=== PATIENT | female | born 1940 | race Two or more races ===

== ENCOUNTER 2022-11-05 15:30 | Inpatient (IN) | payer MEDICARE, OTHER ==
[~2022-11-05] VITALS: Ht 157.5 cm; Wt 49.9 kg
--- NOTE | 2022-11-05 15:55 | NUR ---
Patient AOx4, able to express her concerns. States she d/c from another hospital yesteday and today she woke up feeling weak. Patient able to follow commands, states she feels weak and at times short of breath. Discussed plan of care, patient verbalized agreement, all safety precautions taken.
[2022-11-05] MEDS ORDERED: VANCOMYCIN 1 GM in IV D5W 250 ML IV ONE (16:00)
[2022-11-05] MEDS ORDERED: PIPERACILLIN /TAZOBACTAM 2.25 G in IV D5W 50 ML IV ONE (16:00)
[2022-11-05] MEDS ORDERED: IV NS 0.9% 1,000 ML IV ONE (16:00)
--- NOTE | 2022-11-05 16:15 | NUR ---
COVID Swab collected, sent to lab
[2022-11-05 16:26] LABS: BASOPHILS % (AUTO) 0.3 % (0.0-2.0); EOSINOPHILS % (AUTO) 0.8 % (0.0-6.0); HEMATOCRIT 33 % (33-45); HEMOGLOBIN 10.1 g/dL (11.5-14.8); LYMPHOCYTES # (AUTO) 1.7 K/uL (0.8-4.8); LYMPHOCYTES % (AUTO) 11.5 % (20.0-44.0); MEAN CORPUSCULAR HGB CONC 31 g/dl (31.0-36.0); MEAN CORPUSCULAR VOLUME 101 fL (82-100); MONOCYTES # (AUTO) 0.8 K/uL (0.1-1.30); MONOCYTES % (AUTO) 5.4 % (2.0-12.0); NEUTROPHILS # (AUTO) 12.4 K/uL (1.8-8.9); PLATELET COUNT (AUTO) 484 K/uL (150-450); RED BLOOD CELL COUNT(AUTO) 3.25 MIL/uL (4.0-5.2); WHITE BLOOD COUNT (AUTO) 15.1 K/uL (4.3-11.0)
[2022-11-05] MEDS ORDERED: LORA10TA7 PO (16:36)
[2022-11-05] MEDS ORDERED: NEBI10TA2 PO (16:36)
[2022-11-05] MEDS ORDERED: LIDO30AD10 TP (16:36)
[2022-11-05] MEDS ORDERED: LEVO250T59 PO (16:36)
[2022-11-05] MEDS ORDERED: ATOR10TA PO (16:36)
[2022-11-05] MEDS ORDERED: SITA1TAB6 PO (16:36)
[2022-11-05] MEDS ORDERED: LEVO25TA76 PO (16:36)
[2022-11-05] MEDS ORDERED: GABA300C PO (16:36)
[2022-11-05] MEDS ORDERED: CALC500T52 PO (16:36)
[2022-11-05] MEDS ORDERED: MECL-182 PO (16:36)
[2022-11-05] MEDS ORDERED: MELA3TAB41 PO (16:36)
[2022-11-05] MEDS ORDERED: LACT1CAP71 PO (16:36)
[2022-11-05] MEDS ORDERED: BIMA2.5D5 EACHEYE (16:36)
[2022-11-05] MEDS ORDERED: AZEL137S7 (16:36)
[2022-11-05] MEDS ORDERED: DORZ10DR11 EACHEYE (16:36)
[2022-11-05] MEDS ORDERED: CLOP75TA15 PO (16:36)
[2022-11-05] MEDS ORDERED: PANT20TA2 PO (16:36)
[2022-11-05] MEDS ORDERED: PSYL3.4P6 PO (16:36)
[2022-11-05] MEDS ORDERED: HYDR-4077 PO (16:36)
[2022-11-05] MEDS ORDERED: ASPI-1420 PO (16:36)
[2022-11-05] MEDS ORDERED: COLE625T9 PO (16:37)
[2022-11-05] MEDS ORDERED: LOPE2CAP PO (16:37)
[2022-11-05] MEDS ORDERED: INDO50CA91 PO (16:37)
[2022-11-05] MEDS ORDERED: VERA240C2 PO (16:37)
[2022-11-05] MEDS ORDERED: DICL100G34 TP (16:37)
[2022-11-05] MEDS ORDERED: ACET-868 PO (16:37)
[2022-11-05 16:46] LABS: CALCIUM, SERUM 8.9 mg/dL (8.5-10.1); CARBON DIOXIDE 19 mmol/L (21-32); CHLORIDE 105 mmol/L (98-107); GLUCOSE 234 mg/dL (74-106); POTASSIUM 4.8 mmol/L (3.5-5.1); SODIUM SERUM 139 mmol/L (136-145); UREA NITROGEN, BLOOD 43 mg/dL (7-18)
--- NOTE | 2022-11-05 16:53 | NUR ---
Urine collected, sent to lab
[2022-11-05 16:58] LABS: ABG BASE EXCESS -9.4 mmol/L; ABG PCO2 41.2 mmHg (35.0-45.0); ABG PH 7.242 (7.350-7.450); ABG PO2 67.7 mmHg (75.0-100.0); MetHb 0.2 % (0.0-1.5); O2Hb 88.5 % (94.0-97.0); SITE, ABG Right Brachial; VENT MODE, BG SIMPLE MASK
--- NOTE | 2022-11-05 17:00 | NUR ---
PT. IS AWAKE AND FOLLOW COMMANDS, PLACED INTO BIPAP DUE TO INCREASED WORK OF BREATHING. BIPAP PARAMETERS BELOW ORDERED: IPAP 15 EPAP 5 RR 18 FIO2 60% BREATH SOUNDS FINE CRACKLES BILATERAL. BIPAP PLUGGED IN RED OUTLET WITH ALARMS ON AND FUNCTIONING AMBU BAG @ BEDSIDE Addendum: 11/05/22 at 1711 by AZAEL ROSE RT Amended: Links added.
[2022-11-05 17:01] LABS: ALANINE AMINOTRANSFERASE 49 U/L (12-78); ALKALINE PHOSPHATASE 210 U/L (46-116); ASPARTATE AMINOTRANSFERASE 58 U/L (15-37); BILIRUBIN,DIRECT 0.1 mg/dL (0.0-0.2); BILIRUBIN,TOTAL 0.4 mg/dL (0.2-1.0); MAGNESIUM 2.2 mg/dL (1.8-2.4); TOTAL PROTEIN, SERUM 7.4 g/dL (6.4-8.2)
[2022-11-05 17:26] LABS: BILIRUBIN,URINE 1+ (NEGATIVE); LEUKOCYTE ESTERASE ,URINE NEGATIVE (NEGATIVE); NITRITE, URINE NEGATIVE (NEGATIVE); PH,URINE 5.5 (5.0-8.0); PROTEIN,URINE 2+ mg/dl (NEGATIVE); UGLUCOSE NEGATIVE (NEGATIVE); UROBILINOGEN,URINE 0.2 EU/dL (0.2)
[2022-11-05 17:29] LABS: COLOR,URINE YELLOW (YELLOW)
[2022-11-05] MEDS ORDERED: FUROSEMIDE 40 MG/4 ML VIAL IV ONE ×2 (17:30)
[2022-11-05] MEDS ORDERED: FUROSEMIDE 40 MG/4 ML VIAL ONE (17:49)
[2022-11-05 17:53] LABS: BACTERIA,URINE Rare /HPF (None Seen); RBC,URINE 0-2 /HPF (0-2); SQUAMOUS EPITHELIAL CELL,UR Rare /HPF (None Seen); WBC,URINE 0-2 /HPF (0-3)
--- NOTE | 2022-11-05 17:55 | NUR ---
MOVE SHEET SUBMITTED.
--- NOTE | 2022-11-05 18:01 | NUR ---
Roberta AOx4, with daughter at bedside, per pts request. BIPAP IPAP [id number] EPAP 5, RR 18, O2 60%VT 1062 ml, Min Vent 21l/min, PIP 14
--- NOTE | 2022-11-05 19:36 | NUR ---
GOT BED 258 ADMITTING INFORMED.
[2022-11-05] MEDS ORDERED: HEPARIN INFUSION/D5W 500 ML IV PRN (20:00)
[2022-11-05] MEDS ORDERED: HEPARIN INFUSION/D5W 500 ML IV ONE (20:18)
--- NOTE | 2022-11-05 20:50 | NUR ---
GAVE REPORT TO SANTANA GOMEZ BY SANTANA FOOTE. #2 IV CANNULA INSERTED ON LEFT AC G18.
[2022-11-05] MEDS ORDERED: MORPHINE SULFATE INJ 2 MG/ML DISP.SYRIN IV PRN (21:00)
[2022-11-05] MEDS ORDERED: ACETAMINOPHEN 325 MG TABLET PO PRN (21:00)
[2022-11-05] MEDS ORDERED: DEXTROSE 50%-WATER 50 ML DISP.SYRIN IV PRN (21:00)
[2022-11-05] MEDS ORDERED: LIDOCAINE 5% (PATCH) 1 EA PATCH TP PRN (21:00)
[2022-11-05] MEDS ORDERED: DICLOFENAC TOPICAL 100 GM TUBE TP PRN (21:00)
[2022-11-05] MEDS ORDERED: ONDANSETRON HCL/PF 4 MG/2 ML VIAL IVP PRN (21:00)
[2022-11-05] MEDS ORDERED: LOPERAMIDE HCL (2 MG CAP) 2 MG CAPSULE PO PRN (21:00)
--- NOTE | 2022-11-05 21:15 | NUR ---
Heparin gtt handover to Nuha DILLON in ICU.
--- NOTE | 2022-11-05 21:15 | NUR ---
TRANSFERRED TO ROOM VIA ACLS PROTOCOL. ACCOMPANIED BY RT FOR BIPAP
--- NOTE | 2022-11-05 21:25 | NUR ---
Clarified heparin order with Dr. Alexandre. does not want a loading dose but to start at 650unit/hr and ICU to titrate as per the admiting doc.
[2022-11-05 21:30] VITALS: BP 130/63
[2022-11-05] MEDS: HEPARIN INFUSION/D5W 500 ML IV PRN ×2 (21:30→23:03)
--- NOTE | 2022-11-05 21:30 | NUR ---
RECEIVED PT FROM ER. PT TRANSFERRED TO ICU FROM ER VIA ACLS PROTOCOL. PLACED IN ROOM 258. PT WAKE, ALERT/ORIENTED X4 AND CAMEROONIAN SPEAKING. ON BIPAP, SETTINGS PRESCRIBED. O2 SAT 96%. IV ACCESS ON LT FA #18 AND #20G INFUSING HEPARIN AT 650 UNITS, WILL ADJUST TO 825 UNITS ORDER ORIENTED TO ROOM, UPON PT'S ARRIVAL, V/S T 97.2, HR 64, RR 22, O2SAT 97%, BP 130/63. BODY ASSESSMENT DONE. NO SKIN DISCOLORATION OR OPEN SKIN NOTED. FIRE ENGINE PUMP OPERATOR SHOWS SINUS JIM TO SINUS RHYTHM, HR 56-64. ALL SAFETY MEASURES IN PLACE. BED IN LOWEST POSITION AND LOCKED. SIDE RAILS X3, PLACED CALL LIGHT WITH IN REACH. WILL CONTINUE TO MONITOR AND WILL CONTINUE PLAN OF CARE.
[2022-11-05 22:00] VITALS: BP 125/67
[2022-11-05] MEDS ORDERED: CEFEPIME 1 GM in IV D5W 50 ML IV ONE (22:00)
[2022-11-05] MEDS: BLOOD SUGAR DIAGNOSTIC 1 EACH STRIP IN SCH (22:10)
[2022-11-05] MEDS: INSULIN REGULAR, HUMAN 100 UNIT/ML 3 ML VIAL SQ PRN (22:15)
[2022-11-05 23:00] VITALS: BP 114/66
[2022-11-05] MEDS ORDERED: CEFEPIME 1 GM VIAL ONE (23:00)
[2022-11-05 23:30] LABS: ABG BASE EXCESS -8.3 mmol/L; ABG OXYGEN SATURATION 90.5 % (92.0-98.5); ABG PCO2 29.3 mmHg (35.0-45.0); ABG PH 7.358 (7.350-7.450); ABG PO2 65.2 mmHg (75.0-100.0); AaDO2 330.4 mmHg; MetHb 0.3 % (0.0-1.5); O2Hb 90.2 % (94.0-97.0); SITE, ABG Right Radial; VENT MODE, BG ST 15/5 18 60%
[2022-11-06] VITALS (24 sets, daily range): BP systolic 106–186; BP diastolic 56–94
[2022-11-06 04:25] LABS: BASOPHILS % (AUTO) 0.1 % (0.0-2.0); HEMATOCRIT 26 % (33-45); LYMPHOCYTES # (AUTO) 1.1 K/uL (0.8-4.8); LYMPHOCYTES % (AUTO) 9.1 % (20.0-44.0); MEAN CORPUSCULAR HGB CONC 31 g/dl (31.0-36.0); MEAN CORPUSCULAR VOLUME 99 fL (82-100); MONOCYTES # (AUTO) 0.7 K/uL (0.1-1.30); MONOCYTES % (AUTO) 5.7 % (2.0-12.0); NEUTROPHILS # (AUTO) 9.9 K/uL (1.8-8.9); NEUTROPHILS % (AUTO) 85.1 % (43.0-81.0); PLATELET COUNT (AUTO) 352 K/uL (150-450); RED BLOOD CELL COUNT(AUTO) 2.59 MIL/uL (4.0-5.2); WHITE BLOOD COUNT (AUTO) 11.6 K/uL (4.3-11.0)
[2022-11-06 04:38] LABS: ALANINE AMINOTRANSFERASE 39 U/L (12-78); ALBUMIN 2.3 g/dL (3.4-5.0); ALKALINE PHOSPHATASE 162 U/L (46-116); ASPARTATE AMINOTRANSFERASE 25 U/L (15-37); BILIRUBIN,TOTAL 0.3 mg/dL (0.2-1.0); CALCIUM, SERUM 8.6 mg/dL (8.5-10.1); CARBON DIOXIDE 21 mmol/L (21-32); CHLORIDE 106 mmol/L (98-107); GLUCOSE 180 mg/dL (74-106); PHOSPHORUS 4.2 mg/dL (2.5-4.9); POTASSIUM 4.6 mmol/L (3.5-5.1); SODIUM SERUM 138 mmol/L (136-145); TOTAL PROTEIN, SERUM 5.9 g/dL (6.4-8.2); UREA NITROGEN, BLOOD 47 mg/dL (7-18)
--- NOTE | 2022-11-06 05:58 | NUR ---
RT NOTE PT PLACED ON 6LPM NASAL CANNULA WITH HUMIDIFIER. SPO2 @ 94%, HR 64, RR 18. NO RESPIRATORY DISTRESS NOTED.
--- NOTE | 2022-11-06 06:59 | NUR ---
PT ASLEEP, EASILY AROUSABLE/RESPONSIVE, ALERT/ORIENTED X4 AND TURKMEN SPEAKING. ON O2 AT 6LPM VIA NC, O2 SAT AT 96%. SQUEEGEER AND FORMER SHOWS SINUS JIM TO SINUS RHYTHM, HR 56-64. IV ACCESS ON LT FA #18 AND #20G INFUSING HEPARIN AT 825 UNITS ORDERED. ALL SAFETY MEASURES MAINTAINED. BED IN LOWEST POSITION AND LOCKED. SIDE RAILS X3, PLACED CALL LIGHT WITH IN REACH. WILL ENDORSE TO NEXT NURSE ON DUTY FOR CONTINUITY OF CARE.
--- NOTE | 2022-11-06 07:25 | NUR ---
CLINICAL NUTRITIONIST OPENING NOTE RECEIVED PT ASLEEP, EASILY AROUSABLE/RESPONSIVE, ALERT/ORIENTED X4, MAURITIAN SPEAKING. ON O2 AT 6LPM VIA NC, O2 SAT AT 95%. SODA DIALYZER SHOWS SINUS RHYTHM, HR 65. IV ACCESS ON LT FA #18 AND #20G INFUSING HEPARIN AT 825 UNITS ORDERED. ALL SAFETY MEASURES MAINTAINED. BED IN LOWEST POSITION AND LOCKED. SIDE RAILS X3, PLACED CALL LIGHT WITH IN REACH. BED ALARM ON
[2022-11-06] MEDS: BLOOD SUGAR DIAGNOSTIC 1 EACH STRIP IN SCH ×4 (07:40→21:21)
[2022-11-06] MEDS ORDERED: COLESEVELAM HCL 1875 MG PO SCH (09:00)
[2022-11-06] MEDS: MECLIZINE HCL 12.5 MG TABLET PO SCH (09:00)
[2022-11-06] MEDS: CLOPIDOGREL BISULFATE 75 MG TABLET PO SCH (09:12)
[2022-11-06] MEDS: LEVOTHYROXINE SODIUM 50 MCG TABLET PO SCH (09:12)
[2022-11-06] MEDS: ASPIRIN EC 81 MG TABLET.DR PO SCH (09:13)
[2022-11-06] MEDS: CALCIUM CARBONATE (1250) 500 MG TABLET PO SCH (09:13)
[2022-11-06] MEDS: hydrALAZINE HCL 50 MG TABLET PO SCH ×3 (09:15→17:00)
[2022-11-06] MEDS: METOPROLOL TARTRATE 50 MG TABLET PO SCH ×2 (09:55→21:12)
[2022-11-06 10:12] LABS: THYROID STIMULATING HORMONE 1.921 uIU/mL (0.358-3.74)
[2022-11-06] MEDS: TIMOLOL MAL/DORZOLAM HCL OPHTH 10 ML BOTTLE EACHEYE SCH ×2 (10:18→21:13)
[2022-11-06] MEDS: INSULIN REGULAR, HUMAN 100 UNIT/ML 3 ML VIAL SQ PRN ×2 (10:22→22:49)
[2022-11-06] MEDS: CEFEPIME 2 GM in IV D5W 100 ML IV SCH (10:53)
[2022-11-06] MEDS: IV NS 0.9% 250 ML IV PRN (10:57)
[2022-11-06] MEDS: hydrALAZINE HCL IV 20 MG VIAL IV PRN ×2 (11:05→17:20)
--- NOTE | 2022-11-06 11:40 | NUR ---
RT PATIENT SHOWING SIGNS OF DISTRESS AND SOB. PLACED PATIENT BACK ON BIPAP. Addendum: 11/06/22 at 1141 by GREGOR RODRIGUEZ RT Amended: Links added.
--- NOTE | 2022-11-06 12:30 | NUR ---
RN NOTE BS 232 NOT COVERED AT THIS TIME. DUE TO PT BEING ON BIPAP AND POOR APPETITE
--- NOTE | 2022-11-06 12:56 | NUR ---
RN NOTE PT ON BIPAP AT THIS TIME. ROUNDS MADE WITH DR. WEEKS. KEEP NPO AT THIS TIME
--- NOTE | 2022-11-06 12:57 | NUR ---
RN NOTE NOTIFIED DR. WEEKS OF TROPONIN LEVEL 2058. AWARE
--- NOTE | 2022-11-06 12:58 | NUR ---
rn note notified of troponin 2058. said to continue heparin drip.orders noted and carried out
--- NOTE | 2022-11-06 16:49 | NUR ---
RT PATIENT PLACED BACK ON BIPAP FOR SOB Addendum: 11/06/22 at 1649 by GREGOR RODRIGUEZ RT Amended: Links added.
[2022-11-06] MEDS: VANCOMYCIN 0.75 GM in IV D5W 250 ML IV SCH (17:20)
[2022-11-06] MEDS: LORATADINE 10 MG TABLET PO SCH (18:00)
[2022-11-06] MEDS: ATORVASTATIN 10 MG TABLET PO SCH (18:00)
[2022-11-06] MEDS: GABAPENTIN 300 MG CAPSULE PO SCH (18:00)
[2022-11-06] MEDS: VERAPAMIL SR 120 MG TABLET.SA PO SCH (18:00)
--- NOTE | 2022-11-06 18:16 | NUR ---
rn note notified dr. abdul that bs 231 and if okay to hold insulibn coverage and po medications at this due to bipap Addendum: 11/06/22 at 1820 by SHIRIN GANDARA RN per dr. abdul said okay to hold
--- NOTE | 2022-11-06 19:40 | NUR ---
CERTIFIED PHYSICAL THERAPIST ASSISTANT CLOSING NOTE PT AWAKE, EASILY AROUSABLE/RESPONSIVE, ALERT/ORIENTED X4, SUDANESE SPEAKING. CURRENTLY ON BIPAP, O2 SAT AT 97%. BOILER HOUSE SUPERVISOR SHOWS SINUS RHYTHM, HR 79 AT THIS TIME. IV ACCESS ON LT FA #18 AND #20G INFUSING HEPARIN AT 825 UNITS ORDERED. HEAD OF BED ELEVATED AT ALL TIMES. ALL SAFETY MEASURES MAINTAINED. BED IN LOWEST POSITION AND LOCKED. SIDE RAILS X4, CALL LIGHT WITH IN REACH. BED ALARM ON.ENDORSED TO AQUACULTURIST RN FOR CONTUITY OF CARE
[2022-11-06] MEDS: HEPARIN INFUSION/D5W 500 ML IV PRN (22:56)
[2022-11-07] VITALS (44 sets, daily range): BP systolic 96–187; BP diastolic 58–125
[2022-11-07] MEDS: hydrALAZINE HCL IV 20 MG VIAL IV PRN ×2 (00:04→16:02)
--- NOTE | 2022-11-07 01:46 | NUR ---
LEATHER COVERER OPENING NOTE PT RECEIVED IN BED, AWAKE, A/O X4, MALAY-SPEAKING. PT ON BIPAP WITH SETTING OF 15/5, RATE 18, FIO2 TITRATED DOWN INITIALLY FROM 60% TO 50% AND NOW TO 40% WITH O2SAT 100%; NO S/S OF RESP DISTRESS, NO SOB, NON-LABORED AND EQUAL BREATHING; APPEARS COMFORTABLE OVERALL. PT ATTACHED TO BEDSIDE MONITOR, SR WITH HR OF 74. IV ACCESS ON LFA 20G AND LFA 18G, INTACT AND PATENT, FLUSHES EASILY WITH NO RESISTANCE; HEPARIN INFUSING AT 825 UNITS/HR WITH NO SIGNS OF ACTIVE BLEEDING. BED IN LOWEST POSITION, CALL LIGHT WITHIN REACH, SIDE RAILS UP X2. WILL CONTINUE TO MONITOR THROUGHOUT THE NIGHT.
[2022-11-07 05:35] LABS: BASOPHILS % (AUTO) 0.3 % (0.0-2.0); EOSINOPHILS % (AUTO) 0.2 % (0.0-6.0); HEMATOCRIT 27 % (33-45); HEMOGLOBIN 8.3 g/dL (11.5-14.8); LYMPHOCYTES # (AUTO) 1.5 K/uL (0.8-4.8); LYMPHOCYTES % (AUTO) 13.3 % (20.0-44.0); MEAN CORPUSCULAR HGB CONC 31 g/dl (31.0-36.0); MEAN CORPUSCULAR VOLUME 100 fL (82-100); MONOCYTES # (AUTO) 0.8 K/uL (0.1-1.30); MONOCYTES % (AUTO) 7.1 % (2.0-12.0); NEUTROPHILS # (AUTO) 8.8 K/uL (1.8-8.9); NEUTROPHILS % (AUTO) 79.1 % (43.0-81.0); PLATELET COUNT (AUTO) 391 K/uL (150-450); RED BLOOD CELL COUNT(AUTO) 2.65 MIL/uL (4.0-5.2); WHITE BLOOD COUNT (AUTO) 11.1 K/uL (4.3-11.0)
[2022-11-07 05:51] LABS: ALANINE AMINOTRANSFERASE 30 U/L (12-78); ALBUMIN 2.3 g/dL (3.4-5.0); ALKALINE PHOSPHATASE 154 U/L (46-116); ASPARTATE AMINOTRANSFERASE 13 U/L (15-37); BILIRUBIN,TOTAL 0.4 mg/dL (0.2-1.0); CARBON DIOXIDE 23 mmol/L (21-32); CHLORIDE 105 mmol/L (98-107); CREATININE 1.7 mg/dL (0.6-1.3); GLUCOSE 164 mg/dL (74-106); MAGNESIUM 2.2 mg/dL (1.8-2.4); PHOSPHORUS 4.5 mg/dL (2.5-4.9); POTASSIUM 4.5 mmol/L (3.5-5.1); SODIUM SERUM 138 mmol/L (136-145); TOTAL PROTEIN, SERUM 6.3 g/dL (6.4-8.2); UREA NITROGEN, BLOOD 44 mg/dL (7-18)
--- NOTE | 2022-11-07 06:02 | NUR ---
RN NOTE RECEIVED CRITICAL FROM LAB 1098, NOTED TO BE TRENDING DOWN FROM 2058
--- NOTE | 2022-11-07 07:27 | NUR ---
ICU/RN PT RECEIVED IN BED, AWAKE, A&OX4. PT TRANSITIONED FROM BIPAP TO HFNC 40L 60% FIO2 BY RT AT 0700, O2 SAT 98% AT THIS TIME. BP ELEVATED AT THIS TIME, SCHEDULED MEDICATION TO BE GIVEN AT 0900. LEFT FA 18G AND LEFT FA 20G IN PLACE RUNNING HEPARIN AT 925 UNITS/HR PER PROTOCOL, NEXT APTT SCHEDULED AT 1120. BED LOCKED AND IN LOWEST POSITION, CALL LIGHT WITHIN REACH, 3 SIDE RAILS UP.
[2022-11-07] MEDS: BLOOD SUGAR DIAGNOSTIC 1 EACH STRIP IN SCH ×4 (07:30→21:26)
[2022-11-07 07:37] LABS: CREATININE, URINE 59.4 MG/DL (30.0-125.0)
[2022-11-07] MEDS: ASPIRIN EC 81 MG TABLET.DR PO SCH (08:06)
[2022-11-07] MEDS: CLOPIDOGREL BISULFATE 75 MG TABLET PO SCH (08:06)
[2022-11-07] MEDS: METOPROLOL TARTRATE 50 MG TABLET PO SCH ×2 (08:06→21:25)
[2022-11-07] MEDS: LEVOTHYROXINE SODIUM 50 MCG TABLET PO SCH (08:06)
[2022-11-07] MEDS: MECLIZINE HCL 12.5 MG TABLET PO SCH (08:06)
[2022-11-07] MEDS: hydrALAZINE HCL 50 MG TABLET PO SCH ×3 (08:06→17:30)
[2022-11-07] MEDS: CALCIUM CARBONATE (1250) 500 MG TABLET PO SCH (08:07)
[2022-11-07] MEDS: TIMOLOL MAL/DORZOLAM HCL OPHTH 10 ML BOTTLE EACHEYE SCH ×2 (08:09→21:26)
[2022-11-07] MEDS: INSULIN REGULAR, HUMAN 100 UNIT/ML 3 ML VIAL SQ PRN ×4 (08:09→21:30)
[2022-11-07 09:34] LABS: BILIRUBIN,URINE NEGATIVE (NEGATIVE); COLOR,URINE YELLOW (YELLOW); LEUKOCYTE ESTERASE ,URINE NEGATIVE (NEGATIVE); NITRITE, URINE NEGATIVE (NEGATIVE); PH,URINE 5.5 (5.0-8.0); PROTEIN,URINE 1+ mg/dl (NEGATIVE); UGLUCOSE NEGATIVE (NEGATIVE); UROBILINOGEN,URINE 0.2 EU/dL (0.2)
[2022-11-07 09:36] LABS: EOSINOPHIL,URINE None Seen
[2022-11-07] MEDS ORDERED: NTG 50 MG/D5W250 ML BOTTL 250 ML IV PRN ×2 (10:00→12:00)
[2022-11-07] MEDS: CEFEPIME 2 GM in IV D5W 100 ML IV SCH (10:19)
[2022-11-07] MEDS: FUROSEMIDE 40 MG/4 ML VIAL IV SCH ×3 (10:19→17:29)
--- NOTE | 2022-11-07 11:47 | NUR ---
ICU/RN FRANCIS CATH INSERTED PER ORDER. PT TOLERATED WELL. FC IN PLACE, PATENT AND DRAINING CLEAR YELLOW URINE.
[2022-11-07 11:58] LABS: BACTERIA,URINE Rare /HPF (None Seen); RBC,URINE 0-2 /HPF (0-2); WBC,URINE 0-2 /HPF (0-3)
[2022-11-07 11:59] LABS: SQUAMOUS EPITHELIAL CELL,UR Few /HPF (None Seen); URIC ACID CRYSTALS,URINE Few /HPF (None Seen); YEAST,URINE Rare /HPF (None Seen)
--- NOTE | 2022-11-07 13:00 | NUR ---
ICU/RN PT PLACED BACK ON BIPAP BY RT DUE TO SHORTNESS OF BREATH, 15/5, RATE OF 12, 50% FIO2.
[2022-11-07 13:07] LABS: *SPE A/G RATIO 0.9 (0.7-1.7); *SPE ALPHA-1-GLOBULIN 0.4 g/dL (0.0-0.4); *SPE ALPHA-2-GLOBULIN 1.1 g/dL (0.4-1.0); *SPE BETA GLOBULIN 1.1 g/dL (0.7-1.3); *SPE M-SPIKE Not Observed g/dL (Not Observed)
[2022-11-07] MEDS ORDERED: FUROSEMIDE 40 MG/4 ML VIAL IV SCH (14:30)
[2022-11-07] MEDS: VANCOMYCIN 0.75 GM in IV D5W 250 ML IV SCH (15:53)
[2022-11-07] MEDS: IV NS 0.9% 250 ML IV PRN (15:57)
--- NOTE | 2022-11-07 16:06 | NUR ---
ICU/RN PT CONTINUE TO HAVE ELEVATED BP DESPITE PO MEDICATION AND INITATION OF NITRO DRIP. NITRO DRIP INCREASED PER PROTOCOL, HYDRALAZINE 10MG IVP PRN GIVEN.
[2022-11-07] MEDS: LORATADINE 10 MG TABLET PO SCH (17:29)
[2022-11-07] MEDS: ATORVASTATIN 10 MG TABLET PO SCH (17:29)
[2022-11-07] MEDS: GABAPENTIN 300 MG CAPSULE PO SCH (17:29)
[2022-11-07] MEDS: VERAPAMIL SR 120 MG TABLET.SA PO SCH (17:30)
--- NOTE | 2022-11-07 19:58 | NUR ---
RT NOTE PT RECEIVED ON BIPAP WITH CURRENT SETTINGS OF 15/5, 12, 50%. PT AWAKE/ALERT. MASK SECURED WITH MEPILEX IN PLACE. PT NOTED WITH HIGH HR. RN CHARO AWARE AND EKG ORDER PLACED AND PERFORMED. WILL CONTINUE TO MONITOR CLOSELY. SPO2 @ 100%.
--- NOTE | 2022-11-07 20:00 | NUR ---
ICU/RN: PT NOTED WITH CHANGE IN HEART RYTHMN APPEARS RAPID AFIB. 12 LEAD EKG CONFRIMED RAPID AFIB. SPOKE WITH DR. SANDS NEW ORDERS FOR AMIO DRIP WITH BOLUS PER PROTOCOL.
[2022-11-07] MEDS ORDERED: AMIODARONE 150 MG in IV D5W 100 ML IV ONE (20:30)
[2022-11-07] MEDS ORDERED: AMIODARONE 450 MG in IV D5W 241 ML IV PRN (20:30)
--- NOTE | 2022-11-07 20:45 | NUR ---
ICU/RN: AMIO DRIP BOLUS STARTED PER PROTOCOL.
--- NOTE | 2022-11-07 20:51 | NUR ---
ICU/RN: PT CONVERTED TO SR WITH PAC AFTER AMIO BOLUS. WILL CONTINUE WITH DRIP PER PROTOCOL.
--- NOTE | 2022-11-07 21:00 | NUR ---
ICU/RN: PER DR. WCIHO MOSELEY TO GIVE PT PRESCRIBED LOPRESSOR WHILE RECEIVING AMIODORONE DRIP.
[2022-11-08] VITALS (18 sets, daily range): BP systolic 42–133; BP diastolic 28–107
--- NOTE | 2022-11-08 | NUR ---
ICU/RN: NITRO DRIP HELD DUE TO DECREASING BP.
[2022-11-08] MEDS: HEPARIN INFUSION/D5W 500 ML IV PRN (00:56)
--- NOTE | 2022-11-08 00:57 | NUR ---
ICU/RN: AMIODORONE DRIP STOPPED. DR. WICHO BLANCHARD.
--- NOTE | 2022-11-08 02:28 | NUR ---
ICU/RN: DR. SANDS ORDERED LEVOPHED 8MG TITRATE PER PROTOCOL FOR BP SUPPORT.
[2022-11-08] MEDS ORDERED: NOREPINEPHRINE 8MG/250ML RTU 250 ML IV ONE (02:33)
[2022-11-08] MEDS: NOREPINEPHRINE 8 MG in IV NS 0.9% 242 ML IV PRN ×2 (02:40→08:07)
--- NOTE | 2022-11-08 03:17 | NUR ---
ICU/RN: PT REQUESTED TO BE TAKEN OFF BIPAP. REYES RT AT BEDSIDE TO REMOVE BIPAP AND PLACE PT ON HIGH FLOW NASAL CANULA 30L 60% FIO2. SATURATION 98%
[2022-11-08 04:11] LABS: BASOPHILS % (AUTO) 0.3 % (0.0-2.0); EOSINOPHILS % (AUTO) 0.2 % (0.0-6.0); HEMATOCRIT 29 % (33-45); HEMOGLOBIN 8.7 g/dL (11.5-14.8); LYMPHOCYTES # (AUTO) 2.9 K/uL (0.8-4.8); LYMPHOCYTES % (AUTO) 20.6 % (20.0-44.0); MEAN CORPUSCULAR HGB CONC 30 g/dl (31.0-36.0); MEAN CORPUSCULAR VOLUME 103 fL (82-100); MONOCYTES # (AUTO) 0.8 K/uL (0.1-1.30); MONOCYTES % (AUTO) 5.8 % (2.0-12.0); NEUTROPHILS # (AUTO) 10.3 K/uL (1.8-8.9); NEUTROPHILS % (AUTO) 73.1 % (43.0-81.0); PLATELET COUNT (AUTO) 454 K/uL (150-450); RED BLOOD CELL COUNT(AUTO) 2.83 MIL/uL (4.0-5.2); WHITE BLOOD COUNT (AUTO) 14.1 K/uL (4.3-11.0)
[2022-11-08 04:50] LABS: ALANINE AMINOTRANSFERASE 30 U/L (12-78); ALBUMIN 2.2 g/dL (3.4-5.0); ALKALINE PHOSPHATASE 148 U/L (46-116); ASPARTATE AMINOTRANSFERASE 30 U/L (15-37); BILIRUBIN,TOTAL 0.6 mg/dL (0.2-1.0); CALCIUM, SERUM 8.6 mg/dL (8.5-10.1); CARBON DIOXIDE 13 mmol/L (21-32); CHLORIDE 99 mmol/L (98-107); CREATININE 2.4 mg/dL (0.6-1.3); MAGNESIUM 2.4 mg/dL (1.8-2.4); PHOSPHORUS 7.3 mg/dL (2.5-4.9); POTASSIUM 4.6 mmol/L (3.5-5.1); SODIUM SERUM 134 mmol/L (136-145); TOTAL PROTEIN, SERUM 6.3 g/dL (6.4-8.2); UREA NITROGEN, BLOOD 46 mg/dL (7-18)
[2022-11-08 04:54] LABS: GLUCOSE 413 mg/dL (74-106)
--- NOTE | 2022-11-08 05:30 | NUR ---
ICU/RN: PTT 145.8 PER PROTOCOL HOLD HEPERIN DRIP FOR 60 MIN THEN DECREASE RATE BY 150 UNITS/HR.
--- NOTE | 2022-11-08 05:54 | NUR ---
ICU/RN: CRITICAL TROP [id number] SANDS. PT ALREADY ON HEPARIN DRIP FOR ACS. NO NEW ORDERS. Addendum: 11/08/22 at 0559 by NATHANAEL CEJA RN TROP IS [id number] NOT [id number]
--- NOTE | 2022-11-08 06:30 | NUR ---
ICU/RN: RESTARTED HEPARIN DRIP AT 875 UNITS/HR PER PROTOCOL. PTT ORDERED FOR 1230 11/08/22
--- NOTE | 2022-11-08 06:45 | NUR ---
ICU/RN: PT SCREAMING IN PAIN. PT STATING SHE HAS CHEST PAIN. MORPHINE ADMINISTERED ORDERED.
--- NOTE | 2022-11-08 06:59 | NUR ---
ICU/RN: PT DAUGHTER MARCELLO CALLED AND GIVEN UPDATE ON PT. PT IS TAKING TURN. HEART RATE DROPPING. I RECOMMENDED THAT FAMILY COME TO HOSPITAL TO BE AT BEDSIDE. PT IS DNR/DNI.
--- NOTE | 2022-11-08 07:00 | NUR ---
ICU/RN: REPORT TO LEANNE DILLON FOR CONT OF CARE. Addendum: 11/08/22 at 0710 by NATHANAEL CEJA RN REPRT TO FREIDA DILLON
--- NOTE | 2022-11-08 07:04 | NUR ---
SPECIAL LIBRARIAN NOTE Patient's GCS [id number]. cafeteria monitor showed JR with HR 30s/min. BP was 42/28mmHg on levophed running at 0.3mcg/kg/min. With respect to the cardiac rhythm and low BP, increased levophed all the way to 1.0 mccg/kg/min and continue to titrate. Patient was on HFNC,SpO2 around 90%. Patient looked restless and uncomfortable. Repositioned patient. Keep observation.
[2022-11-08] MEDS: LEVOTHYROXINE SODIUM 50 MCG TABLET PO SCH (07:30)
--- NOTE | 2022-11-08 07:40 | NUR ---
PINKED EDGE SEWING MACHINE OPERATOR NOTE Patient's daughter arrived. Clinical condition briefly updated.
[2022-11-08] MEDS ORDERED: PHENYLEPHRINE 50 MG in IV NS 0.9% 245 ML IV PRN (08:30)
[2022-11-08] MEDS: hydrALAZINE HCL 50 MG TABLET PO SCH (09:00)
[2022-11-08] MEDS: MECLIZINE HCL 12.5 MG TABLET PO SCH (09:00)
[2022-11-08] MEDS: CLOPIDOGREL BISULFATE 75 MG TABLET PO SCH (09:00)
[2022-11-08] MEDS: CALCIUM CARBONATE (1250) 500 MG TABLET PO SCH (09:00)
[2022-11-08] MEDS: ASPIRIN EC 81 MG TABLET.DR PO SCH (09:00)
[2022-11-08] MEDS: TIMOLOL MAL/DORZOLAM HCL OPHTH 10 ML BOTTLE EACHEYE SCH (09:09)
[2022-11-08] MEDS: BLOOD SUGAR DIAGNOSTIC 1 EACH STRIP IN SCH (09:09)
--- NOTE | 2022-11-08 09:50 | NUR ---
WIRE WEAVING LOOM SETTER NOTE Patient's ECG became asystole at 09:50. Checked patient's pupils: fixed and dilated, no spontaneous breathing and pulse. Flat line ECG is obtained. Patient is certified at 09:50.
--- NOTE | 2022-11-08 09:50 | NUR ---
RN NOTE PT DNR/DNI STATUS. FOUND PT ASYSTOLIC, APNEIC, AREFLEXIVE. PRONOUNCED AT 0950. FAMILY AT BEDSIDE. Lennox KNAPP DNP NOTIFIED.
--- NOTE | 2022-11-08 10:20 | NUR ---
INTERNAL AUDITOR NOTE [facility] contacted, staff Luisa said that they would not take the body.
[2022-11-08] MEDS ORDERED: NOREPINEPHRINE 32 MG in IV NS 0.9% 218 ML IV PRN (10:30)
== END 2022-11-08 14:36 ==
LOC: ER 15:52 → ICU 20:15
PROVIDERS: ADMIT Internal Medicine; ATTEND Nurse Practitioner Acute Care
PROC: 5A09357 Assistance with Respiratory Ventilation, Less than 24 Consecutive Hours, Continuous Positive Airway Pressure (ICD-10-PCS; principal; 2022-11-05)
DX: I21.4 Non-ST elevation (NSTEMI) myocardial infarction (principal); J81.0 Acute pulmonary edema; J96.01 Acute respiratory failure with hypoxia; N17.0 Acute kidney failure with tubular necrosis; Z66 Do not resuscitate; I13.0 Hypertensive heart and chronic kidney disease with heart failure and stage 1 through stage 4 chronic kidney disease, or unspecified chronic kidney disease; I16.1 Hypertensive emergency; E87.20 Acidosis, unspecified; E44.0 Moderate protein-calorie malnutrition; I50.9 Heart failure, unspecified; I34.0 Nonrheumatic mitral (valve) insufficiency; E78.5 Hyperlipidemia, unspecified; K21.9 Gastro-esophageal reflux disease without esophagitis; N18.9 Chronic kidney disease, unspecified; E11.22 Type 2 diabetes mellitus with diabetic chronic kidney disease; D63.8 Anemia in other chronic diseases classified elsewhere; E88.09 Other disorders of plasma-protein metabolism, not elsewhere classified; I27.20 Pulmonary hypertension, unspecified; Z79.02 Long term (current) use of antithrombotics/antiplatelets; I48.91 Unspecified atrial fibrillation; Z20.822 Contact with and (suspected) exposure to COVID-19; Z91.018 Allergy to other foods; N27.0 Small kidney, unilateral; N28.1 Cyst of kidney, acquired
CPT/HCPCS: 36415; 36600; 71045-TC; 76770-TC; 80048-TC; 80053-TC; 80061-TC; 80076-TC; 81001; 82010-TC; 82570-TC; 82728-TC; 82962-TC; 83540-TC; 83605-TC; 83735-TC; 83880; 84100-TC; 84155; 84165; 84300-TC; 84439-TC; 84443-TC; 84484-TC; 85025-TC; 85378-TC; 85730-TC; 86850-TC; 87040-TC; 87081-TC; 87086-TC; 93307-TC; 93970-TC; 94799-TC; 99082-TC; A4223; C9803; G0378; J0282; J0360; J0692; J1644; J1815; J1940; J2270; J2370; J2405; J2543; J3370; J3490; J7030; J7050; J7060; J8597